=== PATIENT | female | born 1975 | race Caucasian/White ===

== ENCOUNTER 2024-12-30 10:27 | Outpatient (REF) | payer BC, SELFPAY ==
--- NOTE | 2024-12-30 09:50 | PAPFT_PTH ---
PATIENT: NADIYA GONZALEZ LOC: [facility] U#:[id number] AGE/SX: 49/F ROOM: RE12/30/[address]: Charlene Reyna NP : 1975 BED: DIS: 12/30/2024 SPEC #: [id number] RECD: 12/30/24 13:01 STATUS: DARLENE ALLISON #: [id number] ALLI: 12/30/24 09:[address]: Charlene Reyna NP DEPT: [facility] [place] Cytology RECD BY: Clau Duong ENTERED: 12/30/24 13:01 SP TYPE: PAPFT OT DR: Unknown,Unknown Tissues: 1 - CX/ENDOCX FOR PAP SMEARS Procedures: PAP THIN PREP/[facility] Screening HPV DNA PROBE Comments: [id number] (HPV 16 & 18/45)
== END 2024-12-30 10:28 | disposition home or self-care (01) ==
LOC: LBN 10:27
PROVIDERS: Visit Provider Nurse Practitioner Women's Health
DX: N90.4 Leukoplakia of vulva (principal); R87.615 Unsatisfactory cytologic smear of cervix
CPT/HCPCS: 88142; 87624